=== PATIENT | female | born 1990 | race Caucasian/White ===

== ENCOUNTER 2022-11-29 13:37 | Inpatient (IN) | payer OTHER ==
[2022-11-29 14:32] VITALS: BMI 26.9
[2022-11-29] MEDS ORDERED: BISMUTH SUBSALICYLATE 524 MG/30 ML PO PRN (15:18)
[2022-11-29] MEDS ORDERED: METHOCARBAMOL 500 MG TABLET PO PRN (15:18)
[2022-11-29] MEDS ORDERED: IBUPROFEN 600 MG TABLET (FP) PO PRN (15:18)
[2022-11-29] MEDS ORDERED: LOPERAMIDE HCL 2 MG CAPSULE PO PRN (15:18)
[2022-11-29] MEDS ORDERED: DICYCLOMINE HCL 10 MG CAPSULE PO PRN (15:18)
[2022-11-29] MEDS ORDERED: IBUPROFEN 400 MG TABLET (FP) PO PRN (15:18)
[2022-11-29] MEDS ORDERED: POLYETHYLENE GLYCOL (HEALTHYLAX) 3350 17 GM PACKET PO PRN (15:18)
[2022-11-29] MEDS ORDERED: ONDANSETRON *ODT* 4 MG TABLET SL PRN (15:18)
[2022-11-29] MEDS ORDERED: ACETAMINOPHEN 325 MG TABLET (FP) PO PRN ×2 (15:18)
[2022-11-29] MEDS ORDERED: MAGNESIUM HYDROX 2400MG/30ML ORAL SUSPENSION 30 ML CUP PO PRN (15:18)
[2022-11-29] MEDS ORDERED: NICOTINE 10 MG CARTRIDGE (INHALER) IH PRN (15:18)
[2022-11-29] MEDS ORDERED: BENZOCAINE/MENTHOL (CHLORASEPTIC ) LOZENGE MM PRN (15:18)
[2022-11-29] MEDS ORDERED: MAG HYDROX/AL HYDROX/SIMETH 30 ML UNIT-DOSE CUP PO PRN (15:18)
[2022-11-29] MEDS ORDERED: NALOXONE HCL (KLOXXADO) 8 MG SPRAY NS PRN (15:18)
[2022-11-29] MEDS: hydrOXYzine PAMOATE 25 MG CAPSULE (FP) PO PRN (19:30)
[2022-11-29] MEDS ORDERED: MELATONIN 5 MG TABLETS PO SCH (22:00)
[2022-11-29] MEDS ORDERED: THIAMINE HCL 100 MG TABLET (FP) PO SCH (22:00)
[2022-11-30 09:26] VITALS: BP 106/62; PULSE 74; RESP 18; TEMP 97.1
[2022-11-30] MEDS: hydrOXYzine PAMOATE 25 MG CAPSULE (FP) PO PRN (09:59)
[2022-11-30] MEDS ORDERED: PRENATAL VITAMINS W/ FOLIC ACID TABLET (FP) PO SCH (10:00)
[2022-11-30] MEDS ORDERED: NICOTINE 14 MG/24 HOURS TOPICAL PATCH TD SCH (10:00)
[2022-11-30 12:28] LABS: HEMATOCRIT 45.2 % (32.4-45.2); HEMOGLOBIN 15.3 GM/dL (10.7-15.3); MCHC 33.8 g/dl (32.0-36.0); MEAN CELL VOLUME 88.8 fl (80-96); PLATELET COUNT 299 10^3/uL (134-434); RBC 5.09 M/mm3 (3.60-5.2); RDW 14.4 % (11.6-15.6); WHITE BLOOD COUNT 13.6 K/mm3 (4.0-10.0)
[2022-11-30 12:41] LABS: ALBUMIN 4.1 g/dl (3.4-5.0)
[2022-11-30 12:43] LABS: CREATININE 0.6 mg/dL (0.55-1.3)
[2022-11-30 12:44] LABS: BILIRUBIN,TOTAL 0.9 mg/dL (0.2-1)
[2022-11-30 12:45] LABS: TOT PROT 7.4 g/dl (6.4-8.2)
[2022-11-30 12:46] LABS: CALCIUM 10.1 mg/dL (8.5-10.1)
[2022-11-30] MEDS ORDERED: SERTRALINE HCL 50 MG TABLET (FP) PO SCH (22:00)
== END 2022-11-30 10:30 | disposition home or self-care (01) | DRG 775 ==
LOC: YASAS 13:37 → Y6N 15:45
PROVIDERS: ADMIT Allergy & Immunology; ATTEND Surgery
PROC: HZ2ZZZZ Detoxification Services for Substance Abuse Treatment (ICD-10-PCS; principal; 2022-11-29)
DX: F10.230 Alcohol dependence with withdrawal, uncomplicated (principal); F17.210 Nicotine dependence, cigarettes, uncomplicated; F10.280 Alcohol dependence with alcohol-induced anxiety disorder; F10.282 Alcohol dependence with alcohol-induced sleep disorder; F41.9 Anxiety disorder, unspecified; I10 Essential (primary) hypertension; R56.9 Unspecified convulsions; Z91.410 Personal history of adult physical and sexual abuse
CPT/HCPCS: 36415; 80053; 81025; 85027; 86780; C9803-CS; U0003; U0005

== ENCOUNTER 2024-08-15 09:57 | Inpatient (IN) | payer OTHER ==
[2024-08-15 10:26] VITALS: BMI 25.8
[2024-08-15] MEDS ORDERED: ONDANSETRON *ODT* 4 MG TABLET SL PRN (10:54)
[2024-08-15] MEDS ORDERED: LOPERAMIDE HCL 2 MG CAPSULE PO PRN (10:54)
[2024-08-15] MEDS ORDERED: NALOXONE (NARCAN) HCL 4 MG/0.1 ML SPRAY NS PRN (10:54)
[2024-08-15] MEDS ORDERED: DICYCLOMINE HCL 10 MG CAPSULE PO PRN (10:54)
[2024-08-15] MEDS ORDERED: BISMUTH SUBSALICYLATE 262 MG/15 ML BTL PO PRN (10:54)
[2024-08-15] MEDS ORDERED: BENZOCAINE/MENTHOL (CHLORASEPTIC ) LOZENGE MM PRN (10:54)
[2024-08-15] MEDS ORDERED: MAG HYDROX/AL HYDROX/SIMETH 30 ML UNIT-DOSE CUP PO PRN (10:54)
[2024-08-15] MEDS ORDERED: guaiFENesin 600 MG TABLET.ER (FP) PO PRN (10:54)
[2024-08-15] MEDS ORDERED: BENZONATATE 200 MG CAPSULE PO PRN (10:54)
[2024-08-15] MEDS ORDERED: chlordiazePOXIDE HCL 25 MG CAPSULE ONE (11:40)
[2024-08-15] MEDS ORDERED: METOPROLOL TARTRATE 25 MG TABLET (FP) ONE (11:42)
[2024-08-15] MEDS ORDERED: PRENATAL VITAMINS W/ FOLIC ACID TABLET (FP) PO ONE (11:42)
[2024-08-15] MEDS ORDERED: hydrOXYzine PAMOATE 25 MG CAPSULE (FP) PO ONE (11:42)
[2024-08-15] MEDS: chlordiazePOXIDE HCL 25 MG CAPSULE PO SCH (11:44)
[2024-08-15] MEDS: hydrOXYzine PAMOATE 25 MG CAPSULE (FP) PO PRN (11:45)
[2024-08-15] MEDS: PRENATAL VITAMINS W/ FOLIC ACID TABLET (FP) PO SCH (11:45)
[2024-08-15] MEDS: METOPROLOL TARTRATE 50 MG TABLET (FP) PO ONE (11:45)
[2024-08-15] MEDS: NICOTINE 14 MG/24 HOURS TOPICAL PATCH TD SCH (12:10)
[2024-08-15] MEDS: IBUPROFEN 400 MG TABLET (FP) PO PRN (17:32)
[2024-08-15] MEDS: METHOCARBAMOL 500 MG TABLET PO PRN (19:04)
[2024-08-15] MEDS: chlordiazePOXIDE HCL 25 MG CAPSULE PO PRN (19:44)
[2024-08-15] MEDS: GABAPENTIN 300 MG CAPSULE PO SCH (22:30)
[2024-08-15] MEDS: MELATONIN 5 MG TABLETS PO SCH (22:30)
[2024-08-15] MEDS: THIAMINE 100 MG TABLET PO SCH (22:30)
[2024-08-15] MEDS: traZODone HCL 100 MG TABLET (FP) PO SCH (22:30)
[2024-08-15] MEDS: levETIRAcetam 500 MG TABLET (FP) PO SCH (22:30)
[2024-08-16 12:56] LABS: HEMATOCRIT 41.5 % (32.4-45.2); HEMOGLOBIN 14.3 GM/dL (10.7-15.3); MCH 32.4 pg (25.7-33.7); MCHC 34.5 g/dl (32.0-36.0); MEAN CELL VOLUME 93.8 fl (80-96); MEAN PLT VOLUME 9.8 fl (7.5-11.1); PLATELET COUNT 171 10^3/uL (134-434); RBC 4.43 M/mm3 (3.60-5.2); RDW 14.5 % (11.6-15.6); WHITE BLOOD COUNT 9.5 K/mm3 (4.0-10.0)
[2024-08-16 13:13] LABS: POTASSIUM 4.3 mmol/L (3.5-5.1)
[2024-08-16 14:01] LABS: ALBUMIN 3.4 g/dl (3.4-5.0)
[2024-08-16 14:02] LABS: BLOOD UREA NITROGEN 10.8 mg/dL (7-18)
[2024-08-16 14:05] LABS: CREATININE 0.9 mg/dL (0.55-1.3)
[2024-08-16 14:09] LABS: CALCIUM 9.8 mg/dL (8.5-10.1)
[2024-08-17] MEDS: chlordiazePOXIDE HCL 25 MG CAPSULE PO SCH (06:22)
[2024-08-18] MEDS ORDERED: chlordiazePOXIDE HCL 10 MG CAPSULE PO PRN
[2024-08-18] MEDS: chlordiazePOXIDE HCL 10 MG CAPSULE PO SCH (05:49)
[2024-08-18] MEDS: MAGNESIUM HYDROX 2400MG/30ML ORAL SUSPENSION 30 ML CUP PO PRN (10:29)
[2024-08-18] MEDS: POLYETHYLENE GLYCOL (HEALTHYLAX) 3350 17 GM PACKET PO PRN (14:45)
[2024-08-18] MEDS: NICOTINE POLACRILEX 2 MG GUM BUC PRN (19:21)
[2024-08-19] MEDS: chlordiazePOXIDE HCL 10 MG CAPSULE PO SCH (05:40)
[2024-08-19] MEDS: IBUPROFEN 600 MG TABLET (FP) PO PRN (11:43)
[2024-08-19] MEDS: ACETAMINOPHEN 325 MG TABLET (FP) PO PRN (12:54)
[2024-08-19] MEDS: NALOXONE (NYS OPIOID OVERDOSE PROGRAM) 4 MG/0.1 ML SPRAY NS SCH (15:08)
[2024-08-19 21:22] VITALS: TEMP 97.8
[2024-08-20] MEDS: chlordiazePOXIDE HCL 10 MG CAPSULE PO ONE (05:53)
[2024-08-20 09:19] VITALS: BP 112/70; PULSE 90; RESP 18
== END 2024-08-20 09:40 | disposition home or self-care (01) | DRG 775 ==
LOC: YASAS 09:57 → Y6N 11:30
PROVIDERS: ADMIT Allergy & Immunology; ATTEND Surgery
PROC: HZ2ZZZZ Detoxification Services for Substance Abuse Treatment (ICD-10-PCS; principal; 2024-08-15)
DX: F10.230 Alcohol dependence with withdrawal, uncomplicated (principal); F17.210 Nicotine dependence, cigarettes, uncomplicated; F10.282 Alcohol dependence with alcohol-induced sleep disorder; F10.24 Alcohol dependence with alcohol-induced mood disorder; F31.9 Bipolar disorder, unspecified; F41.8 Other specified anxiety disorders; R56.9 Unspecified convulsions
CPT/HCPCS: 36415; 71046-TC-FY; 80053; 80305; 80307; 81025; 85027; 86780; 93005; 93010